=== PATIENT | female | born 1955 | race Two or more races ===

== ENCOUNTER 2016-04-11 10:47 | Emergency (ER) | END 2016-04-11 14:50 | disposition home or self-care (01) | DX: D64.9 Anemia, unspecified (principal); N12 Tubulo-interstitial nephritis, not specified as acute or chronic; R10.32 Left lower quadrant pain; I10 Essential (primary) hypertension; E11.9 Type 2 diabetes mellitus without complications; R11.2 Nausea with vomiting, unspecified; Z79.84 Long term (current) use of oral hypoglycemic drugs; Z79.82 Long term (current) use of aspirin; Z79.4 Long term (current) use of insulin | CPT/HCPCS: 36415; 74176; 80053; 81001; 82962; 83690; 85025; 96374; 96375; J2270; J2405; J7030; Z7502; Z7610 ==

== ENCOUNTER 2016-08-28 16:12 | Emergency (ER) | payer MEDICAID, OTHER ==
[~2016-08-28] VITALS: Ht 160 cm; Wt 78.0 kg
[~2016-08-28 16:12] MED LIST: ASPI-664 PO; ATOR20TA38 PO; CIPR500T4 PO; GLIP-95 PO; HYDR-902 PO; LANT3I SC; LEVO75TA65 PO; LISI10TA2 PO; METF1000 PO; ONDA4TAB14 PO
[2016-08-28 16:15] VITALS: Ht 160 cm; Wt 78.0 kg
[2016-08-28] MEDS ORDERED: KETOROLAC 30 MG INJ IV STA (17:19)
[2016-08-28] MEDS ORDERED: ONDANSETRON 4 MG INJ IV STA (17:19)
[2016-08-28] MEDS ORDERED: SOD CHLORIDE 0.9% 500 ML IV STA (17:19)
[2016-08-28 17:47] LABS: ADD UMIC YES; UR BILIRUBIN (Dip) NEGATIVE (NEGATIVE); UR BLOOD (Dip) 1+ (NEGATIVE); UR CLARITY CLEAR (CLEAR); UR COLOR LT. YELLOW (YELLOW); UR GLUCOSE (Dip) NEGATIVE (NEGATIVE); UR KETONES (Dip) NEGATIVE (NEGATIVE); UR LEUKOCYTE ESTERASE (Dip) TRACE (NEGATIVE); UR NITRITE (Dip) NEGATIVE (NEGATIVE); UR TOTAL PROTEIN (Dip) 2+ (NEGATIVE); UR UROBILINOGEN (Dip) 0.2 E.U./dL (0.1-1.0)
[2016-08-28 17:55] LABS: UR BACTERIA OCCASIONAL
[2016-08-28 18:32] LABS: ADD SCAN DIFF NO
[2016-08-28 18:34] LABS: BASOPHIL # 0.1 10^3/ul (0.0-0.1); BASOPHILS % 0.7 % (0.0-2.0); EOSINOPHILS # 0.2 10^3/ul (0.0-0.5); EOSINOPHILS % 2.2 % (0.0-7.0); HEMATOCRIT 32.4 % (37.0-47.0); HEMOGLOBIN 10.8 g/dl (12.0-16.0); LYMPHOCYTES # 2.5 10^3/ul (0.8-2.9); LYMPHOCYTES % 34.6 % (15.0-51.0); MEAN CORPUSCULAR HGB CONC 33.3 g/dl (32.0-37.0); MEAN CORPUSCULAR VOLUME 96.1 fl (82.0-101.0); MEAN PLATELET VOLUME 8.9 fl (7.4-10.4); MONOCYTE # 0.5 10^3/ul (0.3-0.9); MONOCYTES % 6.9 % (0.0-11.0); NEUTROPHIL # 4.1 10^3/ul (1.6-7.5); NEUTROPHILS % 55.3 % (39.0-77.0); PLATELET COUNT 331 10^3/UL (140-415); RED BLOOD COUNT 3.37 10^6/ul (4.20-5.40); WHITE BLOOD COUNT 7.4 10^3/ul (4.8-10.8)
[2016-08-28 18:51] LABS: ALBUMIN 4.7 g/dl (3.3-4.9); ALBUMIN/GLOBULIN RATIO 1.42; BILIRUBIN,INDIRECT 0.1 mg/dl (0-1.1); BILIRUBIN,TOTAL 0.1 mg/dl (0.2-1.3); CALCIUM 9.8 mg/dl (8.4-10.2); CREATININE 0.97 mg/dl (0.44-1.00); POTASSIUM 5.2 mmol/L (3.5-5.1)
--- NOTE | 2016-08-28 19:31 | RADRPT ---
PROCEDURE: CT Abdomen and Pelvis without contrast. CLINICAL INDICATION: Abdominal pain. TECHNIQUE: Multiple contiguous axial CT images of the abdomen and pelvis were obtained without the administration of intravenous contrast. Coronal and sagittal reconstructions were also performed. CTDIvol (mGy): 18.34; Total Exam DLP (mGy-cm): 976.60. One or more of the following dose reduction techniques were utilized: - Automated exposure control. - Adjustment of the mA and/or kV according to patient size. - Use of iterative reconstruction technique. COMPARISON: 04/11/2016. FINDINGS: Limited imaging of the lower thorax is unremarkable. The liver and spleen are homogeneous in density. Perihepatic fat stranding has developed since prior examination. The mild perisplenic fat stranding seen on prior examination has increased. In addit ion, mesenteric and omental edema have developed. The omental edema appears somewhat nodular. The g allbladder, pancreas and adrenal glands are unremarkable. The kidneys are symmetric in size. 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 There are no nephroureteral stones. There is no hydronephrosis or abnormal edna nephric inflammation. The abdominal aorta is normal in caliber. Atherosclerotic calcification is present. There is no per iaortic / retroperitoneal lymphadenopathy. The stomach is collapsed. The small and large intestines are unremarkable. The appendix is normal. There is no free intra-abdominal air or fluid. There is no pneumatosis or pneumoperitoneum. Scat tered few mesenteric calcifications are present and unchanged possibly reflecting sequelae of old gr anulomatous disease. The bladder, uterus and adnexa are unremarkable aside from a tiny cyst within the left ovary, which is unchanged. There is no free pelvic fluid. There is no pelvic sidewall or inguinal lymphadenopath y. There is a tiny fat containing left inguinal hernia. Degenerative changes are seen throughout the spine. Body wall soft tissues are unremarkable. IMPRESSION: Progression of mild perisplenic fat stranding with development of edna hepatic, mesenteric and oment al edema. Imaging findings can be seen with systemic disease processes. Consideration is given to portal hypertension as a result of liver disease or reactive inflammation as a result of gastrointes tinal tract pathology. Given the somewhat nodular appearance of the omental infiltration, peritonea l carcinomatosis is also included within the differential. Further evaluation should be obtained wi th CT abdomen/pelvis with intravenous contrast. Small left renal angiomyolipoma, unchanged. RPTAT: [facility] .Ricarda Robledo MD, Date Time Electronically viewed and signed by .Ricarda Robledo MD, on 08/28/2016 19:30 .T/
[2016-08-28] MEDS ORDERED: SOD CHLORIDE 0.9% 100 ML ONE (20:56)
[2016-08-28] MEDS ORDERED: IOHEXOL 300MG/ML 150 ML BTL ONE (20:56)
--- NOTE | 2016-08-28 22:53 | RADRPT ---
PROCEDURE: CT abdomen and pelvis with contrast. CLINICAL INDICATION: Pain and inguinal hernia TECHNIQUE: CT scan of the abdomen and pelvis without contrast [facility] [place] [facility] axial imaging from the lung bases through the pubis symphysis. The patient was scanned after the uneventful intravenous administration of 90 cc of Omnipaque-300. Sagittal and coronal re formatted images were made. CTDI vol 17.94 mGy and DLP 996.99 mGy-cm One of the following 3 dose reduction techniques were used during this CT examination: automated exp osure control; adjustment of the mA and /or kV according to patient size; or use of iterative recons truciton technique. COMPARISON: CT abdomen pelvis 04/11/2016 FINDINGS: CT abdomen: The lung bases are remarkable for bibasilar scarring . The visualized heart size is normal. No per icardial effusion or pleural effusion is present. The visualized liver is normal in size and density without focal masses or intrahepatic biliary duct al dilatation. The visualized spleen is normal. The pancreas, decompressed gallbladder, and bilate ral adrenal glands are normal. The visualized stomach demonstrates mild irregular bowel wall thicke jabari most prominent in the antrum. The previously-described edna splenic fat stranding with perihep atic mesenteric and omental edema again noted. The bilateral kidneys again demonstrate lobulation present. The left inferior pole angiomyoli brandin is again demonstrated which currently measures 2.9 cm AP by 2.2 cm in transverse dimensions. The visualized aorta demonstrates mild vascular calcifications without aneurysmal dilatation. The visualized colon demonstrates an abundance of stool present without evidence for diverticulosis or diverticulitis. A normal appendix is present. Again noted are several scattered calcifications w ithin the mesentery indicative of prior granulomatous disease. No evidence for ascites or pneumoperitoneum is present. CT pelvis: The visualized bowel, including the appendix, is normal in appearance. The urinary bladder is normal . The uterus and bilateral adnexa are normal with a small 0.7 cm left adnexal cysts. No pelvic asc ites or pathologic lymphadenopathy is present. No evidence for pneumoperitoneum is present. A small 2.5 cm fatty left inguinal hernia is noted as well as a right 0.2 cm fatty inguinal hernia. The surrounding osseous structures are remarkable for mild degenerative changes of the imaged spine. IMPRESSION: 1. No significant interval change in the previously described edna splenic, perihepatic, mesenteric , and omental infiltration with edema. No evidence for focal fluid collections or ascites is noted. Differential diagnosis to include potential infiltrating gastric wall neoplasm, portal hypertension , and peritoneal carcinomatosis. Recommend gastrointestinal consultation with upper endoscopy and ad ditional imaging of the stomach. PET-CT is also another consideration. 2. No evidence for ascites or pathologic lymphadenopathy. 3. Left renal inferior pole angiomyolipoma as described above. 4. Mild mesenteric calcifications most compatible with prior exposure to granulomatous disease . RPTAT: HDC .Candace Rand MD, MD Date Time Electronically viewed and signed by .Candace Rand MD, MD on 08/28/2016 22:53 .C/
[2016-08-29] MEDS ORDERED: TRAM50TA2 PO (00:03)
[2016-08-29] MEDS ORDERED: IBUP-1542 PO (00:04)
[2016-08-29] MEDS ORDERED: NITR-58 PO (00:05)
[2016-08-29 00:25] VITALS: BP 190/85; PULSE 69; RESP 18; TEMP 98.7
--- NOTE | 2016-08-29 02:10 | ERD ---
ER Documentation Chief Complaint Date/Time DATE: 08/29/16 TIME: 01:53 Chief Complaint R sided flank pain since Sunday HPI Patient is a 61-year-old female with a history of hypertension, DM, OA who presents to the emergency department with right-sided flank pain started 3 days ago. Patient states that her pain was initially episodic in nature however today her pain has become constant. Patient states the pain does occasionally radiate into her right lower abdomen. Patient denies any fevers however she is having some chills. Patient denies any nausea or vomiting. Patient has tried ibuprofen as well as Tylenol with no relief of symptoms. Patient denies any dysuria, frequency, urgency or hematuria. Patient denies any recent falls or trauma. Patient denies any saddle anesthesia, urinary incontinence, stool incontinence. Patient denies any recent trauma. No sick contacts. ROS All systems reviewed and are negative except as per history of present illness. Medications Home Meds Active Scripts Nitrofurantoin Monohyd Macrocr* (Macrobid*) 100 Mg Capsr, 100 MG PO BID for 5 Days, CAP Prov:ROBIN CONNELL PA-C 08/29/16 Ibuprofen* (Motrin*) 600 Mg Tab, 600 MG PO Q6, #15 TAB Prov:ROBIN CONNELL PA-C 08/29/16 Tramadol HCl (Tramadol HCl) 50 Mg Tablet, 50 MG PO Q4 Y for PAIN, #20 TAB Prov:ROBIN CONNELL PA-C 08/29/16 Ondansetron (Ondansetron Odt) 4 Mg Tab.rapdis, 4 MG PO Q6H Y for NAUSEA AND/OR VOMITING, #30 TAB Prov:PEGGY AVILEZ MD 04/11/16 Hydrocodone/Acetaminophen ([place] 10-325 Tablet) 1 Each Tablet, 1 TAB PO Q6H Y for PAIN, #7 TAB Prov:PEGGY AVILEZ MD 04/11/16 Ciprofloxacin Hcl* (Ciprofloxacin Hcl*) 500 Mg Tablet, 500 MG PO BID for 7 Days , TAB Prov:PEGGY AVILEZ MD 04/11/16 Reported Medications Metformin Hcl* (Metformin Hcl*) 1,000 Mg Tablet, 1000 MG PO WITH BREAKFAST DINNE , #30 TAB 04/11/16 Atorvastatin Calcium* (Atorvastatin Calcium*) 20 Mg Tablet, 20 MG PO QHS, #30 TAB 04/11/16 Levothyroxine Sodium* (Levoxyl*) 75 Mcg Tablet, 75 MCG PO BEFORE BREAKFAST, #30 TAB 04/11/16 Glipizide* (Glipizide*) 10 Mg Tablet, 10 MG PO BID, TAB 04/11/16 Lisinopril* (Lisinopril*) 10 Mg Tablet, 10 MG PO DAILY, #30 TAB 04/11/16 Insulin Glargine* (Lantus*) 100 Unit/Ml Soln, 20 UNIT SC QHS, #1 VIAL 04/11/16 Aspirin (Low Dose Aspirin) 81 Mg Tablet.dr, 81 MG PO DAILY, #30 TAB 04/11/16 Allergies Allergies: Coded Allergies: No Known Allergy (Unverified , 04/11/16) PMhx/Soc Medical and Surgical Hx: pt denies Medical Hx, pt denies Surgical Hx History of Surgery: No Anesthesia Reaction: No Hx Neurological Disorder: No Hx Respiratory Disorders: No Hx Cardiac Disorders: Yes (HTN) Hx Psychiatric Problems: No Hx Miscellaneous Medical Probl: Yes (DM) Hx Alcohol Use: No Hx Substance Use: No Hx Tobacco Use: No FmHx Family History: No diabetes Physical Exam Vitals Vital Signs Date Time Temp Pulse Resp B/P Pulse Ox O2 Delivery O2 Flow Rate FiO2 08/29/16 00:25 98.7 69 18 190/85 99 Room Air 08/28/16 16:15 98.7 74 18 159/74 99 Physical Exam GENERAL: Well-developed, well-nourished female. HEAD: Normocephalic, atraumatic. EYES: Pupils are equally reactive bilaterally. EOMs grossly intact. No conjunctival erythema. ENT: Moist mucous membranes. No uvula deviation. No kissing tonsils. NECK: Supple. No meningismus. Normal range of motion of the neck. LUNG: Clear to auscultation bilaterally. No rhonchi, wheezing, rales or coarse breath sounds. HEART: Regular rate and rhythm. No murmurs, rubs or gallops. ABDOMEN: No scars, ecchymosis or rashes noted. Soft, nontender, and nondistended. Positive bowel sounds in all four quadrants. No rebound tenderness , no guarding. (-) McBurney's point tenderness. R CVA tenderness. BACK: No midline tenderness. Tender to palpation in the right paraspinous muscle region. EXTREMITIES: Equal pulses bilaterally. No peripheral clubbing, cyanosis or edema. No unilateral leg swelling. NEUROLOGIC: Alert and oriented. Moving all four extremities without any difficulty. Normal speech. Steady gait. SKIN: Normal color. Warm and dry. No rashes or lesions. Result Diagram: 08/28/16 1800 08/28/16 1800 Results 24 hrs Laboratory Tests Test 08/28/16 17:30 08/28/16 18:00 08/28/16 21:20 Urine Color LT. YELLOW Urine Clarity CLEAR Urine pH 5.5 Urine Specific [place] 1.015 Urine Ketones NEGATIVE Urine Nitrite NEGATIVE Urine Bilirubin NEGATIVE Urine Urobilinogen 0.2 E.U./dL Urine Leukocyte Esterase TRACE Urine Microscopic RBC 2-5/HPF Urine Microscopic WBC 2-5/HPF Urine Epithelial Cells FEW Urine Bacteria OCCASIONAL Urine Hemoglobin 1+ Urine Glucose NEGATIVE% Urine Total Protein 2+ White Blood Count 7.410^3/ul Red Blood Count 3.3710^6/ul Hemoglobin 10.8g/dl Hematocrit 32.4% Mean Corpuscular Volume 96.1fl Mean Corpuscular Hemoglobin 32.0pg Mean Corpuscular Hemoglobin Concent 33.3g/dl Red Cell Distribution Width 12.0% Platelet Count 60659^3/UL Mean Platelet Volume 8.9fl Neutrophils % 55.3% Lymphocytes % 34.6% Monocytes % 6.9% Eosinophils % 2.2% Basophils % 0.7% Nucleated Red Blood Cells % 0.0/100WBC Neutrophils # 4.110^3/ul Lymphocytes # 2.510^3/ul Monocytes # 0.510^3/ul Eosinophils # 0.210^3/ul Basophils # 0.110^3/ul Nucleated Red Blood Cells # 0.010^3/ul Sodium Level 139mmol/L Potassium Level 5.2mmol/L Chloride Level 103mmol/L Carbon Dioxide Level 24mmol/L Anion Gap 17 Blood Urea Nitrogen 32mg/dl Creatinine 0.97mg/dl Glucose Level 91mg/dl Calcium Level 9.8mg/dl Total Bilirubin 0.1mg/dl Direct Bilirubin 0.00mg/dl Indirect Bilirubin 0.1mg/dl Aspartate Amino Transf (AST/SGOT) 27IU/L Alanine Aminotransferase (ALT/SGPT) 38IU/L Alkaline Phosphatase 98IU/L Total Protein 8.0g/dl Albumin 4.7g/dl Globulin 3.30g/dl Albumin/Globulin Ratio 1.42 Lipase 127U/L Lactic Acid Level 1.2mmol/L Current Medications Medications (Trade) Dose Ordered Sig/Janis Route PRN Reason Start Time Stop Time Status Last Admin Dose Admin Sodium Chloride (NS) 500 ml @ 500 mls/hr Q1H STAT IV 08/28/16 17:19 08/28/16 18:18 DC 08/28/16 18:12 Ondansetron HCl (Zofran Inj) 4 mg ONCE STAT IV 08/28/16 17:19 08/28/16 17:21 DC 08/28/16 18:12 Ketorolac Tromethamine (Toradol) 30 mg ONCE STAT IV 08/28/16 17:19 08/28/16 17:21 DC 08/28/16 18:13 IV Flush 10 ml 10 ml STK-MED ONCE .ROUTE 08/28/16 20:56 08/28/16 20:57 DC 08/28/16 21:11 Sodium Chloride (NS) 100 ml @ ud STK-MED ONCE .ROUTE 08/28/16 20:56 08/28/16 20:57 DC 08/28/16 21:12 Iohexol (Omnipaque 300mg/ ml) 150 ml STK-MED ONCE .ROUTE 08/28/16 20:56 08/28/16 20:57 DC 08/28/16 21:12 Procedures/MDM ED COURSE: The patient was stable throughout ED course. I kept the patient and/or family informed of laboratory and diagnostic imaging results throughout the ED course. DIAGNOSTIC IMAGING: Read by radiologist. Patient: MARGIE KNOX : 1955 Age: 61 Sex: F MR #: [id number] DOS: 08/28/16 1719 Ordering MD: ROBIN CONNELL PA-C Location: [facility] Room/Bed: PROCEDURE: CT Abdomen and Pelvis without contrast. CLINICAL INDICATION: Abdominal pain. TECHNIQUE: Multiple contiguous axial CT images of the abdomen and pelvis were obtained without the administration of intravenous contrast. Coronal and sagittal reconstructions were also performed. CTDIvol (mGy): 18.34; Total Exam DLP (mGy-cm): 976.60. One or more of the following dose reduction techniques were utilized: - Automated exposure control. - Adjustment of the mA and/or kV according to patient size. - Use of iterative reconstruction technique. COMPARISON: 04/11/2016. FINDINGS: Limited imaging of the lower thorax is unremarkable. The liver and spleen are homogeneous in density. Perihepatic fat stranding has developed since prior examination. The mild perisplenic fat stranding seen on prior examination has increased. In addition, mesenteric and omental edema have developed. The omental edema appears somewhat nodular. The gallbladder, pancreas and adrenal glands are unremarkable. The kidneys are symmetric in size. 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 There are no nephroureteral stones. There is no hydronephrosis or abnormal perinephric inflammation. The abdominal aorta is normal in caliber. Atherosclerotic calcification is present. There is no periaortic / retroperitoneal lymphadenopathy. The stomach is collapsed. The small and large intestines are unremarkable. The appendix is normal. There is no free intra-abdominal air or fluid. There is no pneumatosis or pneumoperitoneum. Scattered few mesenteric calcifications are present and unchanged possibly reflecting sequelae of old granulomatous disease. The bladder, uterus and adnexa are unremarkable aside from a tiny cyst within the left ovary, which is unchanged. There is no free pelvic fluid. There is no pelvic sidewall or inguinal lymphadenopathy. There is a tiny fat containing left inguinal hernia. Degenerative changes are seen throughout the spine. Body wall soft tissues are unremarkable. IMPRESSION: Progression of mild perisplenic fat stranding with development of edna hepatic, mesenteric and omental edema. Imaging findings can be seen with systemic disease processes. Consideration is given to portal hypertension as a result of liver disease or reactive inflammation as a result of gastrointestinal tract pathology. Given the somewhat nodular appearance of the omental infiltration, peritoneal carcinomatosis is also included within the differential. Further evaluation should be obtained with CT abdomen/pelvis with intravenous contrast. Small left renal angiomyolipoma, unchanged. RPTAT: HLST .Ricarda Robledo MD, MD Date Time Electronically viewed and signed by .Ricarda Robledo MD, on 08/28/2016 19:30 .T/ CC: ROBIN CONNELL PA-C Patient: MARGIE KNOX : 1955 Age: 61 Sex: F MR #: [id number] DOS: 08/28/16 0000 Ordering MD: ANNY GUILLORY DO Location: [facility] Room/Bed: PROCEDURE: CT abdomen and pelvis with contrast. CLINICAL INDICATION: Pain and inguinal hernia TECHNIQUE: CT scan of the abdomen and pelvis without contrast was performed on a 64-slice CT scanner utilizing axial imaging from the lung bases through the pubis symphysis. The patient was scanned after the uneventful intravenous administration of 90 cc of Omnipaque-300. Sagittal and coronal reformatted images were made. CTDI vol 17.94 mGy and DLP 996.99 mGy-cm One of the following 3 dose reduction techniques were used during this CT examination: automated exposure control; adjustment of the mA and /or kV according to patient size; or use of iterative reconstruciton technique. COMPARISON: CT abdomen pelvis 04/11/2016 FINDINGS: CT abdomen: The lung bases are remarkable for bibasilar scarring . The visualized heart size is normal. No pericardial effusion or pleural effusion is present. The visualized liver is normal in size and density without focal masses or intrahepatic biliary ductal dilatation. The visualized spleen is normal. The pancreas, decompressed gallbladder, and bilateral adrenal glands are normal. The visualized stomach demonstrates mild irregular bowel wall thickening most prominent in the antrum. The previously-described edna splenic fat stranding with perihepatic mesenteric and omental edema again noted. The bilateral kidneys again demonstrate lobulation present. The left inferior pole angiomyolipoma is again demonstrated which currently measures 2.9 cm AP by 2.2 cm in transverse dimensions. The visualized aorta demonstrates mild vascular calcifications without aneurysmal dilatation. The visualized colon demonstrates an abundance of stool present without evidence for diverticulosis or diverticulitis. A normal appendix is present. Again noted are several scattered calcifications within the mesentery indicative of prior granulomatous disease. No evidence for ascites or pneumoperitoneum is present. CT pelvis: The visualized bowel, including the appendix, is normal in appearance. The urinary bladder is normal. The uterus and bilateral adnexa are normal with a small 0.7 cm left adnexal cysts. No pelvic ascites or pathologic lymphadenopathy is present. No evidence for pneumoperitoneum is present. A small 2.5 cm fatty left inguinal hernia is noted as well as a right 0.2 cm fatty inguinal hernia. The surrounding osseous structures are remarkable for mild degenerative changes of the imaged spine. IMPRESSION: 1. No significant interval change in the previously described edna splenic, perihepatic, mesenteric, and omental infiltration with edema. No evidence for focal fluid collections or ascites is noted. Differential diagnosis to include potential infiltrating gastric wall neoplasm, portal hypertension, and peritoneal carcinomatosis. Recommend gastrointestinal consultation with upper endoscopy and additional imaging of the stomach. PET-CT is also another consideration. 2. No evidence for ascites or pathologic lymphadenopathy. 3. Left renal inferior pole angiomyolipoma as described above. 4. Mild mesenteric calcifications most compatible with prior exposure to granulomatous disease . RPTAT: HDC .Candace Rand MD, MD Date Time Electronically viewed and signed by .Candace Rand MD, MD on 08/28/2016 22: 53 .C/ CC: ANNY GUILLORY DO PROCEDURES: None. MEDICATIONS GIVEN: Toradol, Zofran, morphine Patient tolerated medication well with no adverse reactions. Patient reported improvement in pain. MEDICAL DECISION MAKING: This is a 61-year-old female with a history of hypertension, DM, OA who presents with right sided flank pain. Patient denies any falls or trauma. Patient states her symptoms have been worsening over the last 3 days. Vital signs were reviewed. Patient is afebrile. CBC showed no evidence of systemic infection or severe anemia. Slight anemia was noted with a hemoglobin level of 10.6. CMP showed no evidence of electrolyte abnormalities, severe acidosis, alkalosis, renal failure, or liver disease. Lipase showed no evidence of acute pancreatitis. Urinalysis showed trace leukocyte esterase, 2-5 WBCs, 2-[address] abdomen and pelvis without IV contrast showed Progression of mild perisplenic fat stranding with development of edna hepatic, mesenteric and omental edema. Imaging findings can be seen with systemic disease processes. Consideration is given to portal hypertension as a result of liver disease or reactive inflammation as a result of gastrointestinal tract pathology. Given the somewhat nodular appearance of the omental infiltration, peritoneal carcinomatosis is also included within the differential. Further evaluation should be obtained with CT abdomen/pelvis with intravenous contrast. Small left renal angiomyolipoma, unchanged. I discussed these findings with my supervising physician Dr. Guillory. At that time , it was determined that a CT abdomen pelvis with IV contrast should be obtained. Dr. Guillory also ordered a lactic acid. Lactic acid came back to show 1.2. CT imaging of abdomen pelvis with IV contrast 1. No significant interval change in the previously described edna splenic, perihepatic, mesenteric, and omental infiltration with edema. No evidence for focal fluid collections or ascites is noted. Differential diagnosis to include potential infiltrating gastric wall neoplasm, portal hypertension, and peritoneal carcinomatosis. Recommend gastrointestinal consultation with upper endoscopy and additional imaging of the stomach. PET-CT is also another consideration. 2. No evidence for ascites or pathologic lymphadenopathy. 3. Left renal inferior pole angiomyolipoma as described above. 4. Mild mesenteric calcifications most compatible with prior exposure to granulomatous disease. Prior to discharge, I discussed the patient's CT imaging of the abdomen and pelvis with IV contrast with Dr. Clifton. At this time, there was no indication for inpatient admission. Patient can be worked up on an outpatient basis. Patient was given GI referral information. Patient will need an endoscopy and/or colonoscopy as soon as possible. Patient denies having any endoscopies or colonoscopies in the past. Advised the patient that I am unable to rule out any malignancies at this time. Patient as well as daughter and [id number] are advised to follow-up with a GI specialist as soon as possible. Patient is agreeable with this plan. At this time, patient's presentation is most consistent with UTI and peritoneal carcinomatosis. Low suspicion for mesenteric ischemia, lower lobe pneumonia, DKA , SBO, bowel perforation, cholecystitis, choledocholithiasis, ascending cholangitis, hepatic abscess, pancreatitis, PUD, gastritis, GERD, splenic rupture, diverticulosis, diverticulitis, pyelonephritis, nephrolithiasis, appendicitis, constipation. Unable to rule out any malignancies at this time. PRESCRIPTIONS: Tramadol, Ibuprofen DISCHARGE: At this time, patient is stable for discharge and outpatient management. Patient was given a copy of all imaging studies and blood work obtained today. Patient was given referral information for GI specialist. I have instructed the patient to follow-up with his/her primary care physician in 1-2 days. I have instructed the patient to promptly return to the ER at any time for any new or worsening symptoms including increased pain, nausea, vomiting, diarrhea, fever, weakness or LOC. The patient and/or family expressed understanding of and agreement with this plan. All questions were answered. Home care instructions were provided. Patient's blood pressure was elevated (>120/80) but appears stable without evidence of hypertensive emergency, hypertensive urgency or end-organ failure. I had discussion with the patient about the risks of hypertension. I have advised the patient to follow up with his/her primary care physician for outpatient monitoring and treatment for hypertension in 2-3 days. I have instructed the patient to return to the ER for any new or worsening symptoms including chest pain, shortness of breath, headache, blurred vision, confusion, nausea, vomiting or LOC. Departure Diagnosis: Primary Impression: UTI (urinary tract infection) Urinary tract infection type: site unspecified Hematuria presence: without hematuria Qualified Code: N39.0 - Urinary tract infection without hematuria, site unspecified Additional Impressions: Right flank pain Peritoneal carcinomatosis Condition: Stable Patient Instructions: Flank Pain, Uncertain Cause Referrals: WENDY POND MD,ANIKA BRITO MD,OSVALDO TORRES MD,FILIPPO MARTINEZ Additional Instructions: Call your primary care doctor TOMORROW for an appointment during the next 1-2 days.See the doctor sooner or return here if your condition worsens before your appointment time. Follow up with GI specialist GREGORY. See referral information. Patient needs endoscopy and colonoscopy. ROBIN CONNELL PA-C Aug 29, 2016 02:09
== END 2016-08-29 00:25 | disposition home or self-care (01) ==
LOC: FTE 16:12
DX: N39.0 Urinary tract infection, site not specified (principal); C78.6 Secondary malignant neoplasm of retroperitoneum and peritoneum; I10 Essential (primary) hypertension; E11.9 Type 2 diabetes mellitus without complications; Z79.4 Long term (current) use of insulin; Z79.82 Long term (current) use of aspirin; Z79.84 Long term (current) use of oral hypoglycemic drugs
CPT/HCPCS: 36415; 74176; 74177; 80053; 81001; 83605; 83690; 85025; 96374; 96375; J1885; J2405; J7040; Q9967; Z7502; Z7610

== ENCOUNTER 2016-09-10 10:17 | Emergency (ER) | payer OTHER ==
[~2016-09-10] VITALS: Ht 157.5 cm; Wt 68.0 kg
[~2016-09-10 10:17] MED LIST changes: +IBUP-1542 PO; +NITR-58 PO; +TRAM50TA2 PO
[2016-09-10 10:19] VITALS: Ht 157.5 cm; Wt 68.0 kg
[2016-09-10] MEDS ORDERED: ONDANSETRON (ODT) 4 MG TAB ODT STA (10:51)
[2016-09-10] MEDS ORDERED: MECLIZINE 12.5 MG TAB PO ONE (11:00)
[2016-09-10 11:25] LABS: ADD SCAN DIFF NO
[2016-09-10 11:32] LABS: BASOPHIL # 0.1 10^3/ul (0.0-0.1); BASOPHILS % 0.9 % (0.0-2.0); EOSINOPHILS # 0.1 10^3/ul (0.0-0.5); EOSINOPHILS % 1.2 % (0.0-7.0); HEMATOCRIT 34.5 % (37.0-47.0); HEMOGLOBIN 11.5 g/dl (12.0-16.0); LYMPHOCYTES # 1.5 10^3/ul (0.8-2.9); LYMPHOCYTES % 16.9 % (15.0-51.0); MEAN CORPUSCULAR HEMOGLOBIN 32.1 pg (29.0-33.0); MEAN CORPUSCULAR HGB CONC 33.3 g/dl (32.0-37.0); MEAN CORPUSCULAR VOLUME 96.4 fl (82.0-101.0); MEAN PLATELET VOLUME 9.1 fl (7.4-10.4); MONOCYTE # 0.5 10^3/ul (0.3-0.9); MONOCYTES % 5.4 % (0.0-11.0); NEUTROPHIL # 6.7 10^3/ul (1.6-7.5); NEUTROPHILS % 75.3 % (39.0-77.0); PLATELET COUNT 325 10^3/UL (140-415); RED BLOOD COUNT 3.58 10^6/ul (4.20-5.40); RED CELL DISTRIBUTION WIDTH 11.9 % (11.5-14.5); WHITE BLOOD COUNT 8.9 10^3/ul (4.8-10.8)
--- NOTE | 2016-09-10 11:36 | RADRPT ---
PROCEDURE: CT Brain without contrast. CLINICAL INDICATION: Dizziness and headaches for 1 day TECHNIQUE: CT scan of the brain was performed on a multidetector high-resolution CT scan. Axial im aging was obtained of the brain without contrast administration. Coronal and sagittal reformatted i mages were obtained from the axial source images. Standard CT scan of the head without contrast prot ocols were performed. The total exam CTDI equals 44.4 mGy and the total exam DLP equals 630.2 mGy-cm. One or more of the following dose reduction techniques were used: - Automated exposure control. - Adjustment of the mA and/or kV according to patient size. Use of iterative reconstruction technique. COMPARISON: CT head 01/04/2016 FINDINGS: The ventricular system and peripheral CSF spaces are unremarkable. Negative for intracranial masses hemorrhages or midline shift. The matamoros-white matter junction is unremarkable. The bones and jovany rium are intact. The paranasal sinuses and mastoids are unremarkable. IMPRESSION: Negative CT scan of the head without contrast. RPTAT:AAJJ Physician Ashley Date Time Electronically viewed and signed by Physician Ashley on 09/10/2016 11:36 BM/
[2016-09-10 11:46] LABS: ADD UMIC YES; UR ASCORBIC ACID 20 mg/dL (NEGATIVE); UR BACTERIA FEW /HPF (NONE SEEN); UR BILIRUBIN (Dip) NEGATIVE (NEGATIVE); UR BLOOD (Dip) NEGATIVE (NEGATIVE); UR CLARITY CLOUDY (CLEAR); UR COLOR YELLOW (YELLOW); UR GLUCOSE (Dip) NEGATIVE (NEGATIVE); UR KETONES (Dip) NEGATIVE (NEGATIVE); UR LEUKOCYTE ESTERASE (Dip) 1+ Leu/ul (NEGATIVE); UR NITRITE (Dip) NEGATIVE (NEGATIVE); UR RBC 3 /HPF (0-5); UR SPECIFIC GRAVITY (Dip) 1.017 (1.003-1.030); UR SQUAMOUS EPITHELIAL CELL FEW /HPF (FEW); UR TOTAL PROTEIN (Dip) 2+ mg/dl (NEGATIVE); UR UROBILINOGEN (Dip) NEGATIVE (NEGATIVE); UR WBC CLUMPS FEW /HPF (NONE SEEN)
[2016-09-10 11:47] LABS: ALBUMIN 4.9 g/dl (3.3-4.9); ALBUMIN/GLOBULIN RATIO 1.48; BILIRUBIN,INDIRECT 0.1 mg/dl (0-1.1); BILIRUBIN,TOTAL 0.1 mg/dl (0.2-1.3); CALCIUM 10.1 mg/dl (8.4-10.2); CREATININE 1.03 mg/dl (0.44-1.00); POTASSIUM 5.7 mmol/L (3.5-5.1); TOTAL PROTEIN 8.2 g/dl (6.1-8.1)
[2016-09-10] MEDS ORDERED: SOD CHLORIDE 0.9% 1,000 ML IV STA (12:07)
[2016-09-10] MEDS ORDERED: CEPHALEXIN 500 MG CAP PO ONE (12:30)
[2016-09-10] MEDS ORDERED: CEPH-443 PO (13:07)
[2016-09-10] MEDS ORDERED: ONDA8TAB14 PO (13:07)
--- NOTE | 2016-09-10 13:13 | ERD ---
ER Documentation Chief Complaint Date/Time DATE: 09/10/16 TIME: 13:09 Chief Complaint dizziness with nausea this am HPI 61-year-old female presents with some dizziness since this morning. Is worse with lying down. She has some slight sensation of spinning. Is mildly worse with turning her head. She denies any fevers, vomiting, shortness breath or chest pain. She does have nausea. ROS All systems reviewed and are negative except as per history of present illness. Medications Home Meds Active Scripts Ondansetron (Ondansetron Odt) 8 Mg Tab.rapdis, 8 MG PO Q6H Y for NAUSEA AND/OR VOMITING, #6 TAB Prov:JULY RL MD 09/10/16 Cephalexin* (Keflex*) 500 Mg Capsule, 500 MG PO QID for 5 Days, CAP Prov:JULY LR MD 09/10/16 Nitrofurantoin Monohyd Macrocr* (Macrobid*) 100 Mg Capsr, 100 MG PO BID for 5 Days, CAP Prov:ROBIN CONNELL PA-C 08/29/16 Ibuprofen* (Motrin*) 600 Mg Tab, 600 MG PO Q6, #15 TAB Prov:ROBIN CONNELL PA-C 08/29/16 Tramadol HCl (Tramadol HCl) 50 Mg Tablet, 50 MG PO Q4 Y for PAIN, #20 TAB Prov:ROBIN CONNELL PA-C 08/29/16 Ondansetron (Ondansetron Odt) 4 Mg Tab.rapdis, 4 MG PO Q6H Y for NAUSEA AND/OR VOMITING, #30 TAB Prov:PEGGY AVILEZ MD 04/11/16 Hydrocodone/Acetaminophen ([place] 10-325 Tablet) 1 Each Tablet, 1 TAB PO Q6H Y for PAIN, #7 TAB Prov:PEGGY AVILEZ MD 04/11/16 Ciprofloxacin Hcl* (Ciprofloxacin Hcl*) 500 Mg Tablet, 500 MG PO BID for 7 Days , TAB Prov:PEGGY AVILEZ MD 04/11/16 Reported Medications Metformin Hcl* (Metformin Hcl*) 1,000 Mg Tablet, 1000 MG PO WITH BREAKFAST DINNE , #30 TAB 04/11/16 Atorvastatin Calcium* (Atorvastatin Calcium*) 20 Mg Tablet, 20 MG PO QHS, #30 TAB 04/11/16 Levothyroxine Sodium* (Levoxyl*) 75 Mcg Tablet, 75 MCG PO BEFORE BREAKFAST, #30 TAB 04/11/16 Glipizide* (Glipizide*) 10 Mg Tablet, 10 MG PO BID, TAB 04/11/16 Lisinopril* (Lisinopril*) 10 Mg Tablet, 10 MG PO DAILY, #30 TAB 04/11/16 Insulin Glargine* (Lantus*) 100 Unit/Ml Soln, 20 UNIT SC QHS, #1 VIAL 04/11/16 Aspirin (Low Dose Aspirin) 81 Mg Tablet.dr, 81 MG PO DAILY, #30 TAB 04/11/16 Allergies Allergies: Coded Allergies: No Known Allergy (Unverified , 09/10/16) PMhx/Soc Medical and Surgical Hx: pt denies Surgical Hx History of Surgery: No Anesthesia Reaction: No Hx Neurological Disorder: No Hx Respiratory Disorders: No Hx Cardiac Disorders: Yes (HTN) Hx Psychiatric Problems: No Hx Miscellaneous Medical Probl: Yes (DM) Hx Alcohol Use: No Hx Substance Use: No Hx Tobacco Use: No Smoking Status: Never smoker Physical Exam Vitals Vital Signs Date Time Temp Pulse Resp B/P Pulse Ox O2 Delivery O2 Flow Rate FiO2 09/10/16 10:19 98.1 74 18 145/68 99 Physical Exam Const: [] Alert, [id number]. Head: Atraumatic Eyes: Normal Conjunctiva. Eyes PERRLA extraocular movements intact. ENT: Normal External Ears, Nose and Mouth. Neck: Full range of motion..~ No meningismus. Resp: Clear to auscultation bilaterally Cardio: Regular rate and rhythm, no murmurs Abd: Soft, non tender, non distended. Normal bowel sounds Skin: No petechiae or rashes Back: No midline or flank tenderness Ext: No cyanosis, or edema Neur: Awake and alert. Cranial nerves II through XII grossly intact. No cerebellar signs. Normal gait. Mildly positive reproducible vertigo to the left Psych: Normal Mood and Affect Result Diagram: 09/10/16 1116 09/10/16 1116 Results 24 hrs Laboratory Tests Test 09/10/16 10:54 09/10/16 11:16 Urine Color YELLOW Urine Clarity CLOUDY Urine pH 5.0 Urine Specific [place] 1.017 Urine Ketones NEGATIVEmg/dL Urine Nitrite NEGATIVEmg/dL Urine Bilirubin NEGATIVEmg/dL Urine Urobilinogen NEGATIVEmg/dL Urine Leukocyte Esterase 1+Joshua/ul Urine Microscopic RBC 3/HPF Urine Microscopic WBC 45/HPF Urine Squamous Epithelial Cells FEW/HPF Urine Bacteria FEW/HPF Urine Hemoglobin NEGATIVEmg/dL Urine Glucose NEGATIVEmg/dL Urine Total Protein 2+mg/dl White Blood Count 8.910^3/ul Red Blood Count 3.5810^6/ul Hemoglobin 11.5g/dl Hematocrit 34.5% Mean Corpuscular Volume 96.4fl Mean Corpuscular Hemoglobin 32.1pg Mean Corpuscular Hemoglobin Concent 33.3g/dl Red Cell Distribution Width 11.9% Platelet Count 32016^3/UL Mean Platelet Volume 9.1fl Neutrophils % 75.3% Lymphocytes % 16.9% Monocytes % 5.4% Eosinophils % 1.2% Basophils % 0.9% Nucleated Red Blood Cells % 0.0/100WBC Neutrophils # 6.710^3/ul Lymphocytes # 1.510^3/ul Monocytes # 0.510^3/ul Eosinophils # 0.110^3/ul Basophils # 0.110^3/ul Nucleated Red Blood Cells # 0.010^3/ul Sodium Level 141mmol/L Potassium Level 5.7mmol/L Chloride Level 103mmol/L Carbon Dioxide Level 26mmol/L Anion Gap 18 Blood Urea Nitrogen 30mg/dl Creatinine 1.03mg/dl Glucose Level 168mg/dl Calcium Level 10.1mg/dl Total Bilirubin 0.1mg/dl Direct Bilirubin 0.00mg/dl Indirect Bilirubin 0.1mg/dl Aspartate Amino Transf (AST/SGOT) 23IU/L Alanine Aminotransferase (ALT/SGPT) 39IU/L Alkaline Phosphatase 109IU/L Total Protein 8.2g/dl Albumin 4.9g/dl Globulin 3.30g/dl Albumin/Globulin Ratio 1.48 Current Medications Medications (Trade) Dose Ordered Sig/Janis Route PRN Reason Start Time Stop Time Status Last Admin Dose Admin Ondansetron HCl (Zofran Odt) 8 mg ONCE STAT ODT 09/10/16 10:51 09/10/16 10:52 DC 09/10/16 11:03 Meclizine HCl 25 mg 25 mg ONCE ONCE PO 09/10/16 11:00 09/10/16 11:01 DC 09/10/16 11:03 Sodium Chloride (NS) 1,000 ml @ 1,000 mls/hr Q1H STAT IV 09/10/16 12:07 09/10/16 13:06 DC 09/10/16 12:31 Cephalexin (Keflex) 500 mg ONCE ONCE PO 09/10/16 12:30 09/10/16 12:31 DC 09/10/16 12:31 Procedures/MDM CBC shows no leukocytosis. Hemoglobin is 11.5. CMP significant for elevated BUN/creatinine although mildly. Patient has potassium of 5.7. Bicarb is normal. Glucose is normal. Urine shows positive leukocytes, WBCs and bacteria. EKG: Rate/Rhythm: [Normal Sinus Rhythm] rate equals 74 QRS, ST, T-waves: [No changes consistent w/ acute ischemia] Impression: [No evidence of ischemia or arrhythmia] Patient was given Keflex 500 mg of mouth. Patient was given 1 L normal saline IV for findings of prerenal renal insufficiency. Signs and symptoms do not suggest ketoacidosis. Patient has reproducible vertigo type dizziness of uncertain etiology possibly vertigo possibly related to UTI. There is mild hyperkalemia there is no additional findings or abnormal EKG. May be artifactual but recommending follow-up this week with primary doctor. Patient will be treated for UTI and Zofran for nausea. Patient was advised to drink clear fluids. Patient is advised to have laboratory work repeated this week return for chest pain, shortness breath, new worsening symptoms, fevers or vomiting. The patient was stable with no new complaints during the ER course. Clinically, there is no current evidence to suggest meningitis, sepsis, acute abdomen, pneumonia, acute coronary syndrome, pulmonary embolism, or any other emergent condition appearing to require further evaluation or hospitalization. The patient should certainly return for any new or worsening symptoms per the aftercare instructions. They should otherwise follow-up with her primary care doctor for reevaluation this week. Departure Diagnosis: Primary Impression: Dizziness Additional Impression: UTI (urinary tract infection) Urinary tract infection type: acute cystitis Hematuria presence: without hematuria Qualified Code: N30.00 - Acute cystitis without hematuria Condition: Stable Patient Instructions: Understanding Urinary Tract Infections (UTIs), Hyperkalemia, Dizziness, Unk Cause Additional Instructions: TIENE INFECCION EN ORINA. ANDRESSA MUCHO AGUA EN CASA . CHEQUE CIARA OTOR VEZ EN EL PROXIMO SEMANA CON MELVIN DOCTOR. Cheque otro vez con melvin doctor primario en el proximo elena or regresa para mas o nueva simptomas. JULY LR MD Sep 10, 2016 13:13
[2016-09-10 14:00] VITALS: BP 144/68; PULSE 69; RESP 16
== END 2016-09-10 14:01 | disposition home or self-care (01) ==
LOC: FTE 10:17
DX: R42 Dizziness and giddiness (principal); N30.00 Acute cystitis without hematuria; R11.0 Nausea; I10 Essential (primary) hypertension; E11.9 Type 2 diabetes mellitus without complications; Z79.4 Long term (current) use of insulin; Z79.82 Long term (current) use of aspirin; Z79.84 Long term (current) use of oral hypoglycemic drugs
CPT/HCPCS: 36415; 70450; 80053; 81001; 85025; 93005; J7030; Z7502; Z7610